=== PATIENT | male | born 1960 ===

== ENCOUNTER 2024-04-07 07:30 | Inpatient (IN) | payer OTHER ==
[~2024-04-07] VITALS: Ht 175.3 cm; Wt 116.1 kg
[2024-04-07] MEDS ORDERED: LIPITOR80 MG PO (07:39)
[2024-04-07] MEDS ORDERED: TIROSINT50 MCG PO (07:39)
[2024-04-07] MEDS ORDERED: ADULT LOW DOSE81 M1 PO (07:39)
[2024-04-07] MEDS ORDERED: BRILINTA60 MG PO (07:40)
[2024-04-07] MEDS ORDERED: METFORMIN HCL850 MG PO (07:40)
[2024-04-07 08:17] LABS: HEMOGLOBIN 15.5 g/dL (13-16.00); MEAN CELL VOLUME 84.6 fL (80.0-100.00); MEAN CORPUSCULAR HEMOGLOBIN 28.5 pg (27.00-32.0); MEAN CORPUSCULAR HGB CONC 33.7 g/dl (32.0-36.0); PLATELET COUNT 250 K/uL (150-450); RED BLOOD COUNT 5.44 M/uL (4.00-6.00); RED CELL DISTRIBUTION WIDTH 14.6 % (11.5-14.5)
[2024-04-07 08:41] LABS: INR 1.09; PARTIAL THROMBOPLASTIN TIME 28.2 SECONDS (22.0-34.0); PROTHROMBIN TIME 11.8 SECONDS (9.0-11.5)
[2024-05-04] MEDS ORDERED: GLIPIZIDE5 MG (08:16)
[2024-05-04] MEDS ORDERED: PIOGLITAZONE HC15 MG (08:16)
[2024-05-04] MEDS ORDERED: AMLODIPINE-BEN1 EAC2 (08:16)
[2024-05-04] MEDS ORDERED: METFORMIN HCL850 M1 (08:16)
[2024-05-04] MEDS ORDERED: ISOPROPYL ALCOHOL 30 ML OUNCE TOP SCH (08:45)
[2024-05-04] MEDS ORDERED: CEFAZOLIN SODIUM 1,000 MG VIAL IV SCH ×2 (08:45→12:00)
[2024-05-04] MEDS ORDERED: KETOROLAC TROMETHAMINE 60 MG VIAL IM SCH (08:45)
[2024-05-04] MEDS ORDERED: TRANEXAMIC ACID 100MG/1ML (1000MG) AMPUL IV SCH ×2 (08:45)
[2024-05-04] MEDS ORDERED: LIDOCAINE HCL 1% 10ML VIAL IJ SCH (08:45)
[2024-05-04] MEDS ORDERED: VANCOMYCIN HCL 1,000 MG VIAL IR SCH (08:45)
[2024-05-04] MEDS ORDERED: BUPIVACAINE HCL/PF 0.25% 30ML VIAL InF SCH (08:45)
[2024-05-04] MEDS ORDERED: MORPHINE SULFATE 4 MG/ML CARTRIDGE IV SCH ×2 (08:45→12:00)
[2024-05-04] MEDS ORDERED: ONDANSETRON HCL 2 MG/ML VIAL IV PRN (10:15)
[2024-05-04] MEDS ORDERED: OxyCODONE HCL/APAP UD (PERCOCET) PO PRN (10:15)
[2024-05-04] MEDS ORDERED: MORPHINE SULFATE 4 MG/ML VIAL IV ONE (13:00)
[2024-05-04 16:31] VITALS: BP 133/76; O2SAT 96
[2024-05-04] MEDS ORDERED: ORPHENADRINE CITRATE 100 MG TABLET PO SCH (21:00)
[2024-05-04] MEDS ORDERED: GABAPENTIN 100 MG CAPSULE PO SCH (21:00)
[2024-05-05 00:41] VITALS: BP 133/68; O2SAT 98
[2024-05-05 07:05] LABS: HEMATOCRIT 41.1 % (39.0-48.0); HEMOGLOBIN 13.9 g/dL (13-16.00); MEAN CELL VOLUME 85.3 fL (80.0-100.00); MEAN CORPUSCULAR HEMOGLOBIN 28.8 pg (27.00-32.0); MEAN CORPUSCULAR HGB CONC 33.8 g/dl (32.0-36.0); PLATELET COUNT 212 K/uL (150-450); RED BLOOD COUNT 4.82 M/uL (4.00-6.00); RED CELL DISTRIBUTION WIDTH 14.1 % (11.5-14.5)
[2024-05-05] MEDS ORDERED: APIXABAN 2.5 MG TABLET PO SCH (09:00)
[2024-05-05 09:01] VITALS: BP 176/89; O2SAT 96
[2024-05-05] MEDS ORDERED: IRON FUM,PS/FOLIC ACID/VITC/B3 1 CAP CAPSULE PO NR (13:30)
[2024-05-05] MEDS ORDERED: Cyanocobalamin/Mecobalamin 1 TAB.SL SL NR (13:30)
[2024-05-05] MEDS ORDERED: VITAMIN B COMPLEX 1 EACH PO SCH (17:00)
[2024-05-05 17:45] VITALS: BP 183/84; O2SAT 97
[2024-05-06 00:10] VITALS: BP 121/65; O2SAT 97
[2024-05-06 07:18] LABS: HEMATOCRIT 38.5 % (39.0-48.0); HEMOGLOBIN 13.1 g/dL (13-16.00); MEAN CELL VOLUME 82.9 fL (80.0-100.00); MEAN CORPUSCULAR HEMOGLOBIN 28.3 pg (27.00-32.0); MEAN CORPUSCULAR HGB CONC 34.1 g/dl (32.0-36.0); PLATELET COUNT 195 K/uL (150-450); RED BLOOD COUNT 4.64 M/uL (4.00-6.00); RED CELL DISTRIBUTION WIDTH 14.3 % (11.5-14.5)
[2024-05-06 08:25] VITALS: BP 158/86; O2SAT 97
[2024-05-06] MEDS ORDERED: Cyanocobalamin/Mecobalamin 1 TAB.SL SL SCH (09:00)
[2024-05-06] MEDS ORDERED: IRON FUM,PS/FOLIC ACID/VITC/B3 1 CAP CAPSULE PO SCH (09:00)
[2024-05-06 16:05] VITALS: BP 142/77; O2SAT 97
[2024-05-06] MEDS ORDERED: OxyCODONE HCL/APAP UD (PERCOCET) PO PRN (17:00)
[2024-05-06] MEDS ORDERED: MORPHINE SULFATE 4 MG/ML CARTRIDGE IV SCH (18:00)
== END 2024-05-06 17:42 | DRG 470 ==
LOC: SURH 04-13 07:30 → O/R 05-04 05:10 → SURG 05-04 12:37
PROVIDERS: ADMIT Orthopaedic Surgery; ATTEND Orthopaedic Surgery
PROC: 0SRD0JZ Replacement of Left Knee Joint with Synthetic Substitute, Open Approach (ICD-10-PCS; principal; 2024-05-04 07:00)
DX: M17.12 Unilateral primary osteoarthritis, left knee (principal); D62 Acute posthemorrhagic anemia; M85.662 Other cyst of bone, left lower leg; I10 Essential (primary) hypertension

== ENCOUNTER 2024-04-29 12:26 | Outpatient (CLI) | payer OTHER ==
[~2024-04-29 12:26] MED LIST: ADULT LOW DOSE81 M1 PO; BRILINTA60 MG PO; LIPITOR80 MG PO; METFORMIN HCL850 MG PO; TIROSINT50 MCG PO
[2024-04-29 13:20] LABS: HEMATOCRIT 46.9 % (39.0-48.0); HEMOGLOBIN 15.9 g/dL (13-16.00); MEAN CORPUSCULAR HEMOGLOBIN 28.4 pg (27.00-32.0); MEAN CORPUSCULAR HGB CONC 33.8 g/dl (32.0-36.0); PLATELET COUNT 263 K/uL (150-450); RED BLOOD COUNT 5.59 M/uL (4.00-6.00); RED CELL DISTRIBUTION WIDTH 14.6 % (11.5-14.5)
[2024-04-29 13:23] LABS: PH,URINE 5.5 (5.0-8.0); URINE APPEARANCE Clear; URINE BILIRRUBIN Negative (NEGATIVE); URINE BLOOD Negative; URINE COLOR Yellow; URINE KETONE Negative (NEGATIVE); URINE LEUKOCYTE Negative; URINE NITRATE Negative; URINE PROTEIN Negative (NEGATIVE); URINE UROBILINOGEN 0.2 E.U./dl
[2024-04-29 13:24] LABS: URINE BACTERIA 676.2 uL (0.0-1933); URINE EPITHELIAL CELLS 2.7 uL (0.0-38.8); URINE RBC 3.8 uL (0.0-20.8); URINE WBC 4.7 uL (0.0-23.2)
[2024-04-29 13:42] LABS: URINE GLUCOSE 500 MG/DL (NEGATIVE)
[2024-04-29 13:47] LABS: ALBUMIN 4.2 gm/dL (3.4-5.0); BILIRUBIN TOTAL 0.47 mg/dL (0.3-1.2); CALCIUM 9.7 mg/dL (8.5-10.1); CREATININE SERUM 0.68 mg/dL (0.70-1.30); GFR 117.77; GLOBULINA 3.8 G/DL (2.4-3.5); POTASSIUM 4.12 mEq/L (3.5-5.1)
[2024-04-29 13:50] LABS: INR 1.1; PARTIAL THROMBOPLASTIN TIME 27.1 SECONDS (22.0-34.0); PROTHROMBIN TIME 11.9 SECONDS (9.0-11.5)
== END 2024-04-29 23:00 | disposition home or self-care (01) ==
LOC: LAB 12:26
PROVIDERS: ATTEND Orthopaedic Surgery
DX: D68.9 Coagulation defect, unspecified (principal); E78.2 Mixed hyperlipidemia; N39.0 Urinary tract infection, site not specified